=== PATIENT | male | born 1965 | race Caucasian/White ===

== ENCOUNTER 2024-01-23 11:15 | Day surgery (SDC) | payer MEDICAID, OTHER ==
[~2024-01-23] VITALS: Ht 167.6 cm; Wt 158.8 kg
[2024-01-23] MEDS ORDERED: MIDAZOLAM HCL 5 MG/5 ML VIAL ONE ×2 (12:40→12:52)
[2024-01-23] MEDS ORDERED: MEPERIDINE 100 MG INJ. 100 MG/ML VIAL ONE (12:42)
[2024-01-23 12:50] VITALS: O2SAT 95
[2024-01-23] MEDS ORDERED: SIMETHICONE 40 MG/0.6 ML ML ONE (12:52)
[2024-01-23 20:25] VITALS: BP_SYST 95; PULSE 85; RESP 18
== END 2024-01-23 14:38 | disposition home or self-care (01) ==
LOC: SMU 11:15 → SDS 11:15
PROVIDERS: ATTEND Student in an Organized Health Care Education/Training Program
DX: Z12.11 Encounter for screening for malignant neoplasm of colon (principal); K64.8 Other hemorrhoids; Z80.0 Family history of malignant neoplasm of digestive organs; Z79.899 Other long term (current) drug therapy
CPT/HCPCS: 45378; 99285; 99152; 99153; G0378; J2250; J2175